=== PATIENT | male | born 1960 | race Caucasian/White ===

== ENCOUNTER 2016-12-31 22:06 | Emergency (ER) | payer SELFPAY ==
[~2016-12-31] VITALS: Ht 182.9 cm; Wt 79.3 kg
[2016-12-31 22:08] VITALS: BP 144/90
[2016-12-31] MEDS ORDERED: FAMOTIDINE 20 MG TABLET PO ONE (22:30)
[2016-12-31] MEDS ORDERED: DIPHENHYDRAMINE 25 MG CAPSULE PO ONE (22:30)
[2016-12-31] MEDS ORDERED: FAMOTIDINE 20 MG TABLET ONE (23:03)
[2016-12-31] MEDS ORDERED: DIPHENHYDRAMINE 50 MG CAPSULE ONE (23:03)
== END 2016-12-31 23:57 | disposition home or self-care (01) ==
LOC: ED 23:51
DX: T78.40XA Allergy, unspecified, initial encounter (principal); X58.XXXA Exposure to other specified factors, initial encounter; I10 Essential (primary) hypertension; M10.9 Gout, unspecified
CPT/HCPCS: 99284; J7512; Q0163